=== PATIENT | female | born 1950 | race Caucasian/White ===

== ENCOUNTER → 2021-01-08 | Outpatient (CLI) | payer OTHER ==
[~2021-01-08] MED LIST: FEXO180 PO; SIMV10 PO; ZOLP10 PO
== END | disposition home or self-care (01) ==
LOC: LAB SHORT 14:33
DX: D48.5 Neoplasm of uncertain behavior of skin (principal)
CPT/HCPCS: 88305

== ENCOUNTER 2021-03-31 12:39 | Day surgery (SDC) | payer OTHER ==
[~2021-03-31] VITALS: Ht 233.7 cm; Wt 54.7 kg
[~2021-03-31 12:39] MED LIST changes: +Aspir 8181 MG; +BUPR150ER; +Celexa20 MG; +ERGO50000; +MULVITA; +Vitamin B Comple1 EA
== END 2021-03-31 15:14 | disposition home or self-care (01) ==
LOC: ORSCSDS 12:39
PROVIDERS: Surgery
PROC: 0DJD8ZZ Inspection of Lower Intestinal Tract, Via Natural or Artificial Opening Endoscopic (ICD-10-PCS; principal; 2021-03-31 14:15)
DX: Z12.11 Encounter for screening for malignant neoplasm of colon (principal); K64.8 Other hemorrhoids; K64.4 Residual hemorrhoidal skin tags; K57.30 Diverticulosis of large intestine without perforation or abscess without bleeding; F32.9 Major depressive disorder, single episode, unspecified; I10 Essential (primary) hypertension; Z79.82 Long term (current) use of aspirin; Z79.899 Other long term (current) drug therapy
CPT/HCPCS: A9270; J2704; J7120

== ENCOUNTER 2021-11-25 14:55 | Inpatient (IN) | payer OTHER ==
[~2021-11-25] VITALS: Ht 160 cm; Wt 56.7 kg
[~2021-11-25 14:55] MED LIST changes: -Aspir 8181 MG; +Aspir 8181 MG PO; -BUPR150ER; +BUPR150ER PO; -Celexa20 MG; +Celexa20 MG PO; -ERGO50000; +ERGO50000 PO; -MULVITA; +MULVITA PO; -SIMV10 PO; -Vitamin B Comple1 EA; +Vitamin B Comple1 EA PO; +Zocor20 MG PO
[2021-11-25 16:15] LABS: BASOPHILS ABSOLUTE AUTO 0.07 K/mm3 (0.00-0.23); BASOPHILS PERCENT AUTO 0 % (0-2); EOSINOPHILS ABSOLUTE AUTO 0.51 K/mm3 (0.00-0.68); EOSINOPHILS PERCENT AUTO 3 % (0-6); Hematocrit 37.2 % (33.0-51.0); Hemoglobin 11.9 g/dL (11.5-16.0); IMMATURE GRAN ABSOLUTE AUTO 0.09 K/mm3 (0.00-0.10); IMMATURE GRAN PERCENT AUTO 1 % (0-1); LYMPHOCYTES PERCENT AUTO 11 % (21-46); MONOCYTES PERCENT AUTO 8 % (4-13); Mean Corpuscular HGB 28.6 pg (26.0-34.0); Mean Corpuscular Volume 89 fL (80-100); Mean Platelet Volume 10.7 fL (9.1-12.4); NEUTROPHILS ABSOLUTE AUTO 12.46 K/mm3 (1.96-9.15); NEUTROPHILS PERCENT AUTO 77 % (41-73); Platelet Count 321 K/mm3 (150-400); RDW Coefficient Variation 13.4 % (11.7-14.2); RDW Standard Deviation 43.8 fL (35.1-46.3); Red Blood Cell Count 4.16 M/mm3 (3.80-5.20); White Blood Cell Count 16.23 K/mm3 (4.00-11.30)
[2021-11-25] MEDS ORDERED: AMOX-CLAV 875-1 EAC5 PO (16:36)
[2021-11-25 17:02] LABS: Albumin/Globulin Ratio 0.8 (0.8-1.8); Bilirubin, Total 0.5 mg/dL (0.1-1.0); Calcium, Blood 8.2 mg/dL (8.5-10.1); Globulin, Blood 3.9 g/dL (2.2-4.0); Potassium, Blood 3.8 mmol/L (3.5-5.5); Total Protein, Blood 6.9 g/dL (6.4-8.2)
[2021-11-26] MEDS ORDERED: IBUP800 PO (00:45)
[2021-11-26] MEDS ORDERED: ALEN70 PO (00:46)
[2021-11-26 05:07] LABS: BASOPHILS ABSOLUTE AUTO 0.06 K/mm3 (0.00-0.23); BASOPHILS PERCENT AUTO 1 % (0-2); EOSINOPHILS ABSOLUTE AUTO 0.32 K/mm3 (0.00-0.68); EOSINOPHILS PERCENT AUTO 2 % (0-6); Hematocrit 35.5 % (33.0-51.0); Hemoglobin 11.3 g/dL (11.5-16.0); IMMATURE GRAN ABSOLUTE AUTO 0.06 K/mm3 (0.00-0.10); IMMATURE GRAN PERCENT AUTO 1 % (0-1); LYMPHOCYTES ABSOLUTE AUTO 1.38 K/mm3 (0.84-5.20); LYMPHOCYTES PERCENT AUTO 10 % (21-46); MONOCYTES ABSOLUTE AUTO 1.01 K/mm3 (0.16-1.47); MONOCYTES PERCENT AUTO 8 % (4-13); Mean Corpuscular HGB 28.5 pg (26.0-34.0); Mean Corpuscular HGB Conc 31.8 g/dL (31.5-36.5); Mean Corpuscular Volume 90 fL (80-100); NEUTROPHILS ABSOLUTE AUTO 10.38 K/mm3 (1.96-9.15); NEUTROPHILS PERCENT AUTO 79 % (41-73); Platelet Count 292 K/mm3 (150-400); RDW Coefficient Variation 13.3 % (11.7-14.2); Red Blood Cell Count 3.96 M/mm3 (3.80-5.20); White Blood Cell Count 13.21 K/mm3 (4.00-11.30)
[2021-11-26 05:19] LABS: Anion Gap 4 mmol/L (6-16); Blood Urea Nitrogen 8 mg/dL (8-24); Bun/Creatinine Ratio 10.3 (12.0-20.0); CO2, Blood 29 mmol/L (21-32); Calcium, Blood 8.1 mg/dL (8.5-10.1); Chloride, Blood 105 mmol/L (98-108); Creatinine, Blood 0.77 mg/dL (0.40-1.00); Glomerular Filtration Rate >60 (60-); Glucose, Blood 92 mg/dL (70-99); Potassium, Blood 3.7 mmol/L (3.5-5.5); Sodium, Blood 138 mmol/L (136-145)
--- NOTE | 2021-11-26 07:18 | NUR ---
PT ARRIVED FROM THE ED WITH C/O SEVERE BILAT PAIN UNCONTROLLED WITH TRAMADOL. CONTACTED THE MD, NEW ORDERS FOR OXYCODONE AND FENTYNL ORDERED. PT RECIEVED OXYCODONE AND UPON REASSESSMENT PT STATES PAIN IS STILL PRESENT. PT GIVEN FENTYNL. BESIDES THE PAIN NO NEW EVENTS OVERNIGHT. CALL LIGHT AND BELONGINGS WITHIN REACH
--- NOTE | 2021-11-26 16:28 | NUR ---
SHIFT SUMMARY: C/O SHARP CRAMPING PAIN IN LOW ABDOMEN; MEDICATED PER EMAR WITH ADEQUATE RELIEF. STARTED SOAP SUDS ENEMAS AT 1245, BUT PT OPTED TO HAVE FLEET ENEMA AT 1600 AND HAD SMALL RESULT, STATED SHE FEELS A LITTLE BETTER. UP IN ROOM INDEPENDENTLY. TOLERATING CLEAR LIQ DIET.
[2021-11-27 05:06] LABS: Alanine Aminotransfer (ALT/SGP 18 U/L (12-78); Albumin, Blood 2.5 g/dL (3.4-5.0); Albumin/Globulin Ratio 0.7 (0.8-1.8); Alk Phos 61 U/L (50-136); Anion Gap 6 mmol/L (6-16); Aspartate Aminotrans (AST/SGOT 13 U/L (12-37); Bilirubin, Total 0.3 mg/dL (0.1-1.0); Blood Urea Nitrogen 5 mg/dL (8-24); Bun/Creatinine Ratio 7.7 (12.0-20.0); CO2, Blood 26 mmol/L (21-32); Calcium, Blood 7.8 mg/dL (8.5-10.1); Chloride, Blood 108 mmol/L (98-108); Creatinine, Blood 0.65 mg/dL (0.40-1.00); Globulin, Blood 3.7 g/dL (2.2-4.0); Glomerular Filtration Rate >60 (60-); Glucose, Blood 108 mg/dL (70-99); Potassium, Blood 3.1 mmol/L (3.5-5.5); Sodium, Blood 140 mmol/L (136-145); Total Protein, Blood 6.2 g/dL (6.4-8.2)
[2021-11-27 05:14] LABS: BASOPHILS ABSOLUTE AUTO 0.04 K/mm3 (0.00-0.23); BASOPHILS PERCENT AUTO 0 % (0-2); EOSINOPHILS ABSOLUTE AUTO 0.38 K/mm3 (0.00-0.68); EOSINOPHILS PERCENT AUTO 4 % (0-6); Hematocrit 34.8 % (33.0-51.0); Hemoglobin 11.1 g/dL (11.5-16.0); IMMATURE GRAN ABSOLUTE AUTO 0.03 K/mm3 (0.00-0.10); IMMATURE GRAN PERCENT AUTO 0 % (0-1); LYMPHOCYTES ABSOLUTE AUTO 1.57 K/mm3 (0.84-5.20); LYMPHOCYTES PERCENT AUTO 17 % (21-46); MONOCYTES ABSOLUTE AUTO 0.74 K/mm3 (0.16-1.47); MONOCYTES PERCENT AUTO 8 % (4-13); Mean Corpuscular HGB 28.5 pg (26.0-34.0); Mean Corpuscular HGB Conc 31.9 g/dL (31.5-36.5); Mean Corpuscular Volume 89 fL (80-100); Mean Platelet Volume 10.4 fL (9.1-12.4); NEUTROPHILS ABSOLUTE AUTO 6.27 K/mm3 (1.96-9.15); NEUTROPHILS PERCENT AUTO 70 % (41-73); Platelet Count 317 K/mm3 (150-400); RDW Coefficient Variation 13.3 % (11.7-14.2); RDW Standard Deviation 43.7 fL (35.1-46.3); White Blood Cell Count 9.03 K/mm3 (4.00-11.30)
--- NOTE | 2021-11-27 05:44 | NUR ---
PT A/O X4. PT PAIN CONTROLLED WITH OXYCODONE AND FENTYNL OVERNIGHT. NO ACUTE EVENTS HAPPENED OVERNIGHT. PT IS REEDUCATED ABOUT SAFETY AND GETING UP. BELONGINGS AND CALL LIGHT ARE WITHIN REACH.
--- NOTE | 2021-11-27 13:32 | NUR ---
SOAP DELVIN ENEMA GIVEN PER MD COLÓN'S ORDERS. PATIENT TOLERATED WELL.
[2021-11-27] MEDS ORDERED: Colace100 MG PO (14:28)
[2021-11-27] MEDS ORDERED: ANUCORT-HC25 M6 PR (14:29)
[2021-11-27] MEDS ORDERED: MIRALAX17 GM PO (14:30)
[2021-11-27] MEDS ORDERED: VISBIOME 112.51 EACH PO (14:32)
[2021-11-27] MEDS ORDERED: CIPR500 PO (14:33)
--- NOTE | 2021-11-27 15:17 | NUR ---
DISCHARGE NOTE PATIENT DISCHARGED VIA WHEELCHAIR WITH SPOUSE. PATIENT VERBALIZED UNDERSTANDING OF INSTRUCTIONS GIVEN. BELONGINGS WITH PATIENT AT DISCHARGE. VSS. NOTHING FURTHER TO REPORT.
== END 2021-11-27 15:04 | disposition home or self-care (01) | DRG 392 ==
LOC: ER 14:55 → MEDS 14:56
PROVIDERS: Family Medicine; Internal Medicine; Physician Assistant; ADMIT Internal Medicine
DX: K52.9 Noninfective gastroenteritis and colitis, unspecified (principal); Z53.29 Procedure and treatment not carried out because of patient's decision for other reasons; K59.00 Constipation, unspecified; E78.5 Hyperlipidemia, unspecified; E78.00 Pure hypercholesterolemia, unspecified; M81.0 Age-related osteoporosis without current pathological fracture; K44.9 Diaphragmatic hernia without obstruction or gangrene; F32.A Depression, unspecified; Z98.890 Other specified postprocedural states; Z98.891 History of uterine scar from previous surgery; Z79.82 Long term (current) use of aspirin; Z79.899 Other long term (current) drug therapy
CPT/HCPCS: 36415; 74177; 80048; 80053; 83690; 85025; 85651; 86140; 96365; 96366; 96368; 99285-25; A9270; J0744; J1650; J3010; J7030; J7050; Q9967